=== PATIENT | female | born 1970 | race Caucasian/White ===

== ENCOUNTER → 2016-03-06 | Outpatient (CLI) | payer OTHER ==
[~2016-03-06] MED LIST: ABILIFY5 MG PO; ACYCLOVIR800 MG PO; ADVAIR 250/501 DISK IH; BENADRYL ALLERG25 MG PO; BUPROPION HCL150 M2 PO; CLARITIN10 MG PO; LITHIUM CARBON300 MG PO; MULTIVITAMIN1 EAC2 PO; NASALCROM NASAL13 ML BOTH NARES; OXYBUTYNIN CHLOR5 MG PO; PEPCID20 MG PO; PREDNISONE20 MG PO; PROVENTIL2.5 MG/3 M IH; SEROQUEL100 MG PO; TYLENOL EXTRA500 MG PO; XANAX2 MG PO; ZYRTEC10 M2 PO
== END | disposition home or self-care (01) ==
LOC: RES 09:22
DX: R05 Cough (principal)
CPT/HCPCS: 94010; 94070; 94726; 94729

== ENCOUNTER 2016-05-17 06:34 | Emergency (ER) | payer OTHER ==
[~2016-05-17] VITALS: Ht 157.5 cm; Wt 148.9 kg
[2016-05-17 06:58] LABS: ADD MIUA? YES; BILIRUBIN NEGATIVE; BLOOD NEGATIVE; COLOR YELLOW ((YELLOW)); GLUCOSE (STRIP) NEGATIVE; KETONES NEGATIVE; LEUKOCYTES SMALL; NITRITE NEGATIVE; PROTEIN (STRIP) NEGATIVE; SPECIFIC GRAVITY 1.011 (1.000-1.030); UROBILINOGEN 0.2 MG/DL (0.2-1.0)
[2016-05-17] MEDS ORDERED: ASCORBIC ACID100 MG PO (07:06)
[2016-05-17] MEDS ORDERED: FEOSOL325 MG PO (07:06)
[2016-05-17] MEDS ORDERED: FOLTX TABLET1 EAC1 PO (07:06)
[2016-05-17 07:08] LABS: BACTERIA NONE SEEN /HPF; EPITHELIAL CELLS RARE /HPF; MUCUS NONE SEEN /LPF; RED BLOOD CELLS NONE SEEN /HPF (0-5); UCUL ADDED? NO; WHITE BLOOD CELLS 0-5 /HPF (0-5)
[2016-05-17 07:52] LABS: HEMATOCRIT 35.5 % (36.0-46.0); MCH 26.5 PG (29.0-34.0); MCHC 30.4 G/DL (30.0-36.0); MCV 87.2 FL (83-99); MEAN PLAT.VOLUME 9.5 uM^3 (9.5-12.4); PLATELET COUNT 243 K/uL (156-360); RBC DIS.WIDTH-CV 13.2 % (11.8-14.6); RBC DIS.WIDTH-SD 42.3 % (39-53); RED BLOOD COUNT 4.07 M/uL (3.80-5.20)
[2016-05-17 08:11] LABS: ANION GAP 8 MEQ/L (2-14); CHLORIDE 107 MEQ/L (99-109); SAMPLE HEMOLYSIS CHECK 0; SAMPLE ICTERIC CHECK 0; SAMPLE LIPEMIA CHECK 0; SODIUM 140 MEQ/L (136-147); TOTAL BILIRUBIN 0.3 MG/DL (0.0-1.0)
[2016-05-17 08:17] LABS: ALKALINE PHOSPHATASE 67 IU/L (3-129); GFR ESTIMATE (CALCULATED) > 59 mL/min/; GLUCOSE 87 mg/dL (70-99); UREA NITROGEN (BUN) 13 mg/dL (9-23)
[2016-05-17 09:40] VITALS: BP 145/70
[2016-05-17 10:44] LABS: QUANTITATIVE HCG < 4.0 MIU/ML
== END 2016-05-17 09:41 | disposition home or self-care (01) ==
LOC: EME 06:34
DX: B34.9 Viral infection, unspecified (principal); R10.84 Generalized abdominal pain; K58.9 Irritable bowel syndrome, unspecified; Z88.6 Allergy status to analgesic agent; Z88.8 Allergy status to other drugs, medicaments and biological substances; Z87.891 Personal history of nicotine dependence
CPT/HCPCS: 80053; 81003; 84702; 85027; 99281; 99284; J7030

== ENCOUNTER → 2016-07-22 | Outpatient (CLI) | payer OTHER ==
[~2016-07-22] VITALS: Ht 160 cm; Wt 151.1 kg
[~2016-07-22] MED LIST changes: +ASCORBIC ACID100 MG PO; +FEOSOL325 MG PO; +FOLTX TABLET1 EAC1 PO; +JUBLIA4 ML TP; +NOLVADEX20 MG PO; +PROBIOTIC1 EAC3 PO; +REMERON30 M2 PO; +VITAMIN D31000 UNI2 PO
[2016-07-22 16:25] LABS: INTERNAL CONTROL VALID? YES
== END | disposition home or self-care (01) ==
LOC: AMB 06:46
PROVIDERS: Internal Medicine
PROC: 0DBE8ZX Excision of Large Intestine, Via Natural or Artificial Opening Endoscopic, Diagnostic (ICD-10-PCS; principal; 2016-07-22)
DX: K58.0 Irritable bowel syndrome with diarrhea (principal); R10.9 Unspecified abdominal pain; D64.9 Anemia, unspecified; J45.909 Unspecified asthma, uncomplicated; Z68.43 Body mass index [BMI] 50.0-59.9, adult; E66.9 Obesity, unspecified; Z87.891 Personal history of nicotine dependence; Z83.3 Family history of diabetes mellitus; Z82.49 Family history of ischemic heart disease and other diseases of the circulatory system; Z80.3 Family history of malignant neoplasm of breast
CPT/HCPCS: 84703; 88305; J2250; J3010

== ENCOUNTER 2016-11-25 05:14 | Day surgery (SDC) | payer OTHER ==
[~2016-11-25] VITALS: Ht 157.5 cm; Wt 150.0 kg
[~2016-11-25 05:14] MED LIST changes: +DAILY MULTIPLE1 EACH PO; +EXCEDRIN MIGRA1 EAC3 PO; +FLONASE16 G1 BOTH NARES; +IMODIUM A-D2 M2 PO; +IRON325 M1 PO; +LICORICE ROOT PO
[2016-11-25 06:08] VITALS: BP 111/54
[2016-11-25 15:31] VITALS: BP 125/62
[2016-11-25 19:46] VITALS: BP 138/76
[2016-11-25 23:54] VITALS: BP 125/58
[2016-11-26 04:04] VITALS: BP 130/64
[2016-11-26 07:47] LABS: ANION GAP 8 MEQ/L (2-14); CHLORIDE 104 MEQ/L (99-109); GFR ESTIMATE (CALCULATED) > 59 mL/min/; GLUCOSE 96 mg/dL (70-99); POTASSIUM 4.4 MEQ/L (3.7-5.4); SAMPLE HEMOLYSIS CHECK 1; SAMPLE ICTERIC CHECK 0; SAMPLE LIPEMIA CHECK 0; SODIUM 137 MEQ/L (136-147); UREA NITROGEN (BUN) 8 mg/dL (9-23)
[2016-11-26 08:00] VITALS: BP 132/60
[2016-11-26] MEDS ORDERED: MOTRIN800 MG PO (08:47)
[2016-11-26] MEDS ORDERED: TYLENOL WITH C1 EACH PO (08:47)
[2016-11-26 08:49] LABS: HEMATOCRIT 34.7 % (36.0-46.0); MCH 27.9 PG (29.0-34.0); MCHC 31.1 G/DL (30.0-36.0); MCV 89.7 FL (83-99); MEAN PLAT.VOLUME 9.9 uM^3 (9.5-12.4); PLATELET COUNT 244 K/uL (156-360); RBC DIS.WIDTH-CV 13.2 % (11.8-14.6); RBC DIS.WIDTH-SD 43.5 % (39-53); RED BLOOD COUNT 3.87 M/uL (3.80-5.20); WHITE BLOOD COUNT 12.3 K/uL (4.1-10.2)
[2016-11-26 11:35] VITALS: BP 134/61
== END 2016-11-26 13:00 | disposition home or self-care (01) ==
LOC: SDC 05:14 → ENRESERV 11:56 → 2SOUTH 12:00 → 2EAST 12:00 → ENRESERV 12:49 → 2EAST 13:52 → SDC 16:15 → 2EAST 11-26 13:00
PROVIDERS: Obstetrics & Gynecology
DX: D25.1 Intramural leiomyoma of uterus (principal); N92.0 Excessive and frequent menstruation with regular cycle; E66.01 Morbid (severe) obesity due to excess calories; Z68.44 Body mass index [BMI] 60.0-69.9, adult; J45.909 Unspecified asthma, uncomplicated; K21.9 Gastro-esophageal reflux disease without esophagitis; Z79.899 Other long term (current) drug therapy
CPT/HCPCS: 80048; 85027; 87086; 88307; G0378; J0131; J0690; J1170; J1200; J1885; J2250; J2405; J2710; J2765; J3010; J7120; Q0175; S0020

== ENCOUNTER → 2017-06-30 | Outpatient (CLI) | payer OTHER ==
[~2017-06-30] VITALS: Ht 160 cm; Wt 146.5 kg
[~2017-06-30] MED LIST changes: +AEROSPAN8.9 GM IH; +COZAAR25 MG PO; +MAGNESIUM250 MG PO; +MOTRIN800 MG PO; +TYLENOL WITH C1 EACH PO; +VITAMIN B-121000 MC3 PO; +VITAMIN C1000 MG PO
== END | disposition home or self-care (01) ==
LOC: AMB 09:41
DX: K29.80 Duodenitis without bleeding (principal); K44.9 Diaphragmatic hernia without obstruction or gangrene
CPT/HCPCS: 88305; 88342 TC; 93005